=== PATIENT | male | born 1965 | race Caucasian/White ===

== ENCOUNTER 2024-04-05 14:01 | Emergency (ER) | payer SELFPAY ==
[~2024-04-05] VITALS: Ht 182.9 cm; Wt 112.0 kg
[2024-04-05 14:04] VITALS: O2SAT 99
[2024-04-05 14:39] VITALS: BP 142/82; PULSE 97; RESP 15; O2SAT 99
== END 2024-04-05 16:16 | disposition left against medical advice (07) ==
LOC: ER 14:34
DX: R51.9 Headache, unspecified (principal); I10 Essential (primary) hypertension
CPT/HCPCS: 99283